=== PATIENT | female | born 1990 | race African-American/Black ===

== ENCOUNTER 2017-04-15 10:44 | Emergency (ER) | payer MEDICAID ==
[~2017-04-15] VITALS: Ht 170.2 cm; Wt 59.0 kg
[~2017-04-15 10:44] MED LIST: CYCL5TAB10; METO5TAB94; TRAM50TA3
[2017-04-15] MEDS ORDERED: METHOCARBAMOL 500MG TABLET PO ONE (11:45)
[2017-04-15] MEDS ORDERED: KETOROLAC 30MG/ML VIAL IM ONE (11:45)
[2017-04-15] MEDS ORDERED: SODIUM CHLORIDE 0.9% 1,000 ML IV ONE (13:15)
[2017-04-15 13:21] LABS: BASOPHILS % 0.9 % (0.0-2.0); EOSINOPHILS % 0.3 % (0.0-5.0); HEMOGLOBIN. 12.2 g/dL (12.0-16.0); LYMPHOCYTES % 26.8 % (20.0-50.0); MEAN CORPUSCULAR HEMOGLOBIN 32.3 pg (28.0-32.0); MEAN PLATELET VOLUME 8.5 fl (7.4-10.4); MONOCYTES % 8.6 % (2.0-8.0); NEUTROPHILS % 63.4 % (40.0-76.0); PLATELET 356 x1000/uL (130-400); RED BLOOD CELL COUNT 3.79 mill/uL (4.2-5.4); RED CELL DISTRIBUTION WIDTH 15.6 % (11.6-14.6)
[2017-04-15 13:35] LABS: CARBON DIOXIDE 30 mEq/L (21-32); CHLORIDE 104 mEq/L (98-107)
[2017-04-15] MEDS ORDERED: IOHEXOL-300 100 ML BOTTLE ONE (15:02)
[2017-04-15] MEDS ORDERED: MORPHINE SULFATE 2 MG/ML CPJ (NOT FOR IM USE) IV ONE (18:15)
[2017-04-15 21:04] VITALS: BP 139/80
== END 2017-04-15 21:19 | disposition short-term general hospital (02) ==
LOC: ER 11:32
DX: M54.5 Low back pain (principal); R07.89 Other chest pain; F17.200 Nicotine dependence, unspecified, uncomplicated; V89.2XXA Person injured in unspecified motor-vehicle accident, traffic, initial encounter; Y93.89 Activity, other specified; Y92.89 Other specified places as the place of occurrence of the external cause; Y99.8 Other external cause status
CPT/HCPCS: 36415; 71111; 71260; 74177; 80048; 81025; 85025; 93005; 96372; 96374; 99285; J1885; J2270; J7030; Q9967; Z7610

== ENCOUNTER 2017-05-04 20:47 | Emergency (ER) | payer MEDICAID ==
[~2017-05-04] VITALS: Ht 167.6 cm; Wt 54.0 kg
[2017-05-04 20:52] VITALS: BP 142/90
[2017-05-04] MEDS ORDERED: KETOROLAC 60MG/2ML VIAL IM ONE (22:15)
== END 2017-05-04 22:30 | disposition left against medical advice (07) ==
LOC: ER 21:12
DX: S63.501A Unspecified sprain of right wrist, initial encounter (principal); Y08.89XA Assault by other specified means, initial encounter; Y93.89 Activity, other specified; Y92.89 Other specified places as the place of occurrence of the external cause; Y99.8 Other external cause status
CPT/HCPCS: 99283; J1885

== ENCOUNTER 2017-05-04 23:37 | Emergency (ER) | payer MEDICAID ==
[~2017-05-04] VITALS: Ht 167.6 cm; Wt 60.0 kg
[2017-05-05 07:30] VITALS: BP 115/74
== END 2017-05-05 08:24 | disposition home or self-care (01) ==
LOC: ER 05-05 02:37
DX: M25.531 Pain in right wrist (principal); M79.641 Pain in right hand; F41.9 Anxiety disorder, unspecified; F31.9 Bipolar disorder, unspecified; F17.200 Nicotine dependence, unspecified, uncomplicated
CPT/HCPCS: 73100; 73120; 81025; 99284